=== PATIENT | female | born 1985 | race Caucasian/White ===

== ENCOUNTER 2017-06-13 11:13 | Emergency (ER) | payer OTHER ==
[~2017-06-13] VITALS: Ht 180.3 cm; Wt 81.6 kg
[2017-06-13 11:13] VITALS: BP 161/101
[2017-06-13] MEDS ORDERED: ACET-704 PO (11:57)
[2017-06-13] MEDS ORDERED: CEPH-263 PO (11:57)
[2017-06-13] MEDS ORDERED: NAPR375T3 PO (11:57)
--- NOTE | 2017-06-13 11:58 | PHYS DOC ---
Past History Past Medical History: No Pertinent History Past Surgical History: No Surgical History Alcohol Use: None Drug Use: None Adult General Chief Complaint Chief Complaint: INSECT BITE HPI HPI Patient is a 31-year-old female who presents with complaints of insect bites and increased redness of the right lower thigh and also the right buttock area. Patient was moving out of her house and had to stay in a hotel after spending the night there she noticed the lesions but she comes in because. Redness is spreading. Patient denies any fevers, chills, vomiting, diarrhea. Patient has not complaints Review of Systems Review of Systems Constitutional: Denies fever or chills [] HENT: Denies nasal congestion or sore throat [] Respiratory: Denies cough or shortness of breath [] Cardiovascular: No chest pain GI: Denies abdominal pain, nausea, vomiting, bloody stools or diarrhea [] : Denies dysuria or hematuria [] Musculoskeletal: Denies back pain or joint pain [] Integument: As per the history of present illness Neurologic: Denies headache, focal weakness or sensory changes [] Allergies Allergies Allergies Coded Allergies Type Severity Reaction Last Updated Verified No Known Drug Allergies 07/05/14 No Physical Exam Physical Exam Constitutional: Well developed, well nourished, no acute distress, non-toxic appearance. [] HENT: Normocephalic, atraumatic, Eyes: EOMI, conjunctiva normal, no discharge. [] Neck: Normal range of motion, no tenderness, supple, no stridor. [] Cardiovascular:Heart rate regular rhythm, no murmur equal pulses, normal perfusion Lungs & Thorax: Bilateral breath sounds clear to auscultation, no tachypnea Abdomen: Soft nontender Skin: Lesions consistent with insect-ites in the right inner thigh with surrounding cellulitis. Similar lesions right buttock. No signs of abscess Back: Normal range of motion Extremities: No tenderness,ROM intact, no edema. [] Neurologic: Alert and oriented X 3, normal motor function, normal ambulation in the ED without assistance, no focal deficits noted. [] Psychologic: Affect normal, judgement normal, mood normal. [] EKG EKG [] Radiology/Procedures Radiology/Procedures [] Course & Med Decision Making Course & Med Decision Making Pertinent Labs and Imaging studies reviewed. (See chart for details) [] Dragon Disclaimer Dragon Disclaimer This chart was dictated in whole or in part using Voice Recognition software in a busy, high-work load, and often noisy Emergency Department environment. It may contain unintended and wholly unrecognized errors or omissions. Departure Departure: Impression: Primary Impression: Cellulitis Additional Impression: Insect bite Disposition: 01 HOME, SELF-CARE Condition: STABLE Referrals: HIREN DOUGLASS APRN (PCP) Follow-up in 3-5 days for recheck and reevaluation. If your symptoms worsen or new concerning symptoms develop please return to the ED immediately. Patient Instructions: Cellulitis, Insect Bite Scripts Cephalexin (KEFLEX) 250 Mg Capsule 1 CAP PO TID, #21 CAP Prov: Helen VENTURA MD 06/13/17 Naproxen (NAPROXEN) 375 Mg Tablet 1 TAB PO BID, #15 TAB 5 Refills Prov: Helen VENTURA MD 06/13/17 Acetaminophen With Codeine (TYLENOL WITH CODEINE #3 TABLET) 1 Each Tablet 1 TAB PO Q6HRS, #8 TAB Prov: Helen VENTURA MD 06/13/17 Problem Qualifiers Helen VENTURA MD Jun 13, 2017 11:58
== END 2017-06-13 12:10 | disposition home or self-care (01) ==
LOC: ER 11:13
DX: L03.115 Cellulitis of right lower limb (principal); S70.361A Insect bite (nonvenomous), right thigh, initial encounter; W57.XXXA Bitten or stung by nonvenomous insect and other nonvenomous arthropods, initial encounter; Y93.89 Activity, other specified; Y99.8 Other external cause status; Y92.89 Other specified places as the place of occurrence of the external cause
CPT/HCPCS: 99283

== ENCOUNTER 2018-11-04 06:25 | Emergency (ER) | payer SELFPAY ==
[~2018-11-04] VITALS: Ht 180.3 cm; Wt 95.3 kg
[~2018-11-04 06:25] MED LIST: ACET-704 PO; CEPH-263 PO; NAPR-695 PO
[2018-11-04 06:35] VITALS: BP 143/90
[2018-11-04] MEDS ORDERED: TRAM50TA PO (07:07)
[2018-11-04] MEDS ORDERED: MUPI15CR TP (07:07)
[2018-11-04] MEDS ORDERED: CEPH-264 PO (07:07)
--- NOTE | 2018-11-04 16:25 | ED.ADGEN ---
Past History Past Medical History: Hypertension Past Surgical History: Alcohol Use: None Drug Use: None Adult General Chief Complaint Chief Complaint Right arm pain, swelling and redness HPI HPI Patient is a 32-year-old female who reports possible spider bite to right medial bicep with concern for possible spider bite. Patient reports itching, pain and redness first noted yesterday with gradual expansion of rash around central puncture wound. Reports pain with palpation, itching and clear drainage from the central puncture wound site. No fever chills, abdominal pain, nausea, palpitations, chest pain shortness breath. No other acute symptoms or complaints.] Review of Systems Review of Systems Review symptoms as per history of present illness. All other review symptoms are negative. All other systems were reviewed and found to be within normal limits, except as documented in this note. Allergies Allergies Allergies Coded Allergies Type Severity Reaction Last Updated Verified No Known Drug Allergies 07/05/14 No Physical Exam Physical Exam Constitutional: Well developed, well nourished, no acute distress, non-toxic appearance. [] HENT: Normocephalic, atraumatic, bilateral external ears normal, oropharynx moist, no oral exudates, nose normal. [] Eyes: PERRLA, EOMI, conjunctiva normal, no discharge. [] Neck: Normal range of motion, no tenderness, supple, no stridor. [] Cardiovascular:Heart rate regular rhythm, no murmur [] Lungs & Thorax: Bilateral breath sounds clear to auscultation [] Extremities: 5 x 7 cm patch of erythema with central puncture wound with clear drainage. Mild induration of surrounding site with tenderness. No purulent drainage or obvious cellulitis[] Neurologic: Alert and oriented X 3, normal motor function, normal sensory function, no focal deficits noted. [] Psychologic: Affect normal, judgement normal, mood normal. [] Current Patient Data Vital Signs Vital Signs Date Time Temp Pulse Resp B/P (MAP) Pulse Ox O2 Delivery O2 Flow Rate FiO2 11/04/18 06:35 97.4 20 98 Room Air EKG EKG [] Radiology/Procedures Radiology/Procedures [] Course & Med Decision Making Course & Med Decision Making Pertinent Labs and Imaging studies reviewed. (See chart for details) [Likely spider bite with concern for possible secondary cellulitis. Recommend empiric treatment and close PCP follow-up. Return precautions reviewed.] Final Impression Final Impression [1 spider bite 2. right arm cellulitis ] Mikki Disclaimer Mikki Disclaimer This electronic medical record was generated, in whole or in part, using a voice recognition dictation system. RACHEL MONIQUE DO Nov 04, 2018 16:25
== END 2018-11-04 07:10 | disposition home or self-care (01) ==
LOC: ER 06:25
DX: T63.301A Toxic effect of unspecified spider venom, accidental (unintentional), initial encounter (principal); L03.113 Cellulitis of right upper limb; I10 Essential (primary) hypertension; Y92.89 Other specified places as the place of occurrence of the external cause
CPT/HCPCS: 99283

== ENCOUNTER 2019-11-28 18:51 | Emergency (ER) | payer SELFPAY ==
[~2019-11-28] VITALS: Ht 180.3 cm; Wt 92.8 kg
[~2019-11-28 18:51] MED LIST changes: +CEPH-264 PO; +MUPI15CR TP; +TRAM50TA PO
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
[2019-11-28] MEDS ORDERED: HYDROcodon/IBUPROFEN 7.5/200MG 1 TAB TABLET PO ONE (21:00)
[2019-11-28 21:41] LABS: BARBITURATES NEG (NEG); BENZODIAZEPINES NEG (NEG); CANNABINOIDS NEG (NEG); COCAINE NEG (NEG); METHADONE NEG (NEG); OPIATES NEG (NEG); PHENCYCLIDINE NEG (NEG)
[2019-11-28 21:42] LABS: BILIRUBIN,URINE NEG (NEG); CLARITY,URINE CLEAR; COLOR,URINE AMBER; GLUCOSE,URINE NEG (NEG)
[2019-11-28 21:43] LABS: BACTERIA,URINE 0 /HPF (0-FEW); NITRITE,URINE NEG (NEG); RBC,URINE 0 /HPF (0-2); SQUAMOUS EPITHELIAL CELL,UR OCC /LPF; WBC,URINE 0 /HPF (0-4)
[2019-11-28 21:44] LABS: U PREG PATIENT NEGATIVE (NEG)
[2019-11-28 21:46] LABS: AMPHETAMINE/METHAMPHETAMINE POS (NEG)
[2019-11-30 19:07] LABS: CHLAMYDIA PROBE Negative (Negative)
== END 2019-11-28 22:00 | disposition left against medical advice (07) ==
LOC: ER 18:51 → EEVIPCON 18:51 → ER 22:00
DX: S40.012A Contusion of left shoulder, initial encounter (principal); S40.011A Contusion of right shoulder, initial encounter; S30.23XA Contusion of vagina and vulva, initial encounter; F15.10 Other stimulant abuse, uncomplicated; I10 Essential (primary) hypertension; F17.210 Nicotine dependence, cigarettes, uncomplicated; Y04.0XXA Assault by unarmed brawl or fight, initial encounter; Y93.89 Activity, other specified; Y92.89 Other specified places as the place of occurrence of the external cause; Y99.8 Other external cause status
CPT/HCPCS: 36415; 80307; 81001; 81025; 86592; 86703; 86705; 86709; 86803; 87340; 87491; 87591; 99283; Q0111

== ENCOUNTER 2020-05-17 21:40 | Emergency (ER) | payer SELFPAY ==
[~2020-05-17] VITALS: Ht 180.3 cm; Wt 92.8 kg
[2020-05-17 21:54] VITALS: BP 137/80
[2020-05-17] MEDS ORDERED: CEPHALEXIN 250 MG CAPSULE PO ONE (22:30)
[2020-05-17] MEDS ORDERED: SMZ/TMP 800/160MG TABLET. PO ONE (22:30)
--- NOTE | 2020-05-17 22:36 | PHYS DOC ---
Past History Past Medical History: Hypertension Past Surgical History: Smoking: Cigarettes Alcohol Use: None Drug Use: None General Adult EDM: Chief Complaint: SKIN PROBLEM HPI: HPI: 34-year-old female with past medical history of hypertension (takes no routine medications), presents to the ED with complaints of rash and multiple pruritic lesions over her lower extremities, left elbow and right buttock, that started on . Patient states she felt like she was bit by a spider because she saw one crawling in her bedroom ("brown w/white eyes," 2cms big). Has not checked her mattress. Cannot recall any outdoor exposures (home air conditioned, no camping or hikes, does not around sharma/water), new lotions/perfumes/detergents/foods. No relief with peroxide, Neosporin or aloe vera. No known history of MRSA. LMP was last month. Unknown last tetanus. ROS: Denies associated fever, chills, cough, sore throat, chest pain, dyspnea, hemoptysis, joint swelling or decreased range of motion, vaginal bleeding, abnormal vaginal discharge or odor, dysuria, hematuria, flank pain, abdominal or back pain, decreased urine output, headache, neck stiffness or diaphoresis. Review of Systems: Review of Systems: Constitutional: Denies fever or chills Eyes: Denies change in visual acuity HENT: Denies nasal congestion or sore throat Respiratory: Denies cough or shortness of breath Cardiovascular: Denies chest pain GI: Denies abdominal pain, nausea, vomiting, : Denies dysuria Musculoskeletal: Denies back pain or joint pain Integument: Denies rash Neurologic: Denies headache, focal weakness or sensory changes Lymphatic: Denies swollen glands Psychiatric: Denies depression or anxiety Current Medications: Current Meds: Current Medications Medications (Trade) Dose Ordered Sig/Caden Start Time Stop Time Status Last Admin Dose Admin Cephalexin HCl (Keflex) 500 mg 1X ONCE 05/17/20 22:30 05/17/20 22:31 UNV Trimethoprim/ Sulfamethoxazole (Bactrim Ds) 1 tab 1X ONCE 05/17/20 22:30 05/17/20 22:31 UNV Allergies: Allergies: Allergies Coded Allergies Type Severity Reaction Last Updated Verified No Known Drug Allergies 07/05/14 No Physical Exam: PE: Constitutional: Well developed, well nourished, no acute distress, non-toxic appearance. [] HENT: Normocephalic, atraumatic, bilateral external ears normal, oropharynx moist, no oral exudates, nose normal. [] Eyes: EOMI, conjunctiva normal, no discharge. [] Neck: Normal range of motion, no tenderness, supple, no stridor. [] Cardiovascular:Heart rate regular rhythm, no murmur [] Lungs & Thorax: Bilateral breath sounds clear to auscultation [] Abdomen: Bowel sounds normal, soft, no tenderness, no masses, no pulsatile masses. [] Skin: Warm, dry, left lateral proximal elbow with 8 x 6 cm area of erythema and swelling, no elbow joint tenderness or decreased range of motion, left lateral ankle with 4 x 6 cm area of erythema with 2 punctate wounds (bug bites?)m medial right leg with uniform 4.5 x 6 cm area of erythema with patchy cellulitis surrounding this erythema that is 12 x 8 cm, right upper buttocks with multiple red patchy lesions that appear to be bug bites and local inflammation Back: No tenderness, no CVA tenderness. [] Extremities: No tenderness, no cyanosis, no clubbing, ROM intact, no edema. [] Neurologic: Alert and oriented X 3, normal motor function, normal sensory function, no focal deficits noted. [] Psychologic: Affect normal, judgement normal, mood normal. [] Current Patient Data: Vital Signs: Vital Signs Date Time Temp Pulse Resp B/P (MAP) Pulse Ox O2 Delivery O2 Flow Rate FiO2 05/17/20 21:54 98.5 86 18 137/80 (99) 99 Room Air EKG: EKG: [] Radiology/Procedures: Radiology/Procedures: IMAGING REPORT Signed PATIENT: ORALIA BUCKLEY DACCOUNT: [id number] : 1985 LOCATION: ER AGE: 34 SEX: F EXAM STATUS: REG ER ORD. PHYSICIAN: SABA MURRAY DO REASON: MULTIPLE BUG BITES, REDNESS, SWELLING. PROCEDURE: ANKLE LEFT 3V Left elbow x-rays 3 views HISTORY: Multiple bug bites, redness and swelling. FINDINGS: No abnormal elevation of the fat pads to suggest a joint effusion. No fracture or dislocation. No arthritic change. No periosteal reaction or lytic bone destruction to localize a potential site of infection. There is dorsal proximal forearm soft tissue edema and swelling. IMPRESSION: No acute osseous injury. Soft tissue edema and swelling of the proximal forearm may indicate cellulitis. Left forearm AP lateral x-rays 2 views HISTORY: Multiple bug bites, redness and swelling. FINDINGS: Expansile proximal dorsal forearm soft tissue edema and swelling. No periosteal reaction or lytic bone destruction to suggest osteomyelitis. No fracture or dislocation. IMPRESSION: No acute osseous injury. Focal proximal forearm soft tissue edema and marked swelling likely cellulitis. Left ankle x-rays 3 views HISTORY: Multiple bug bites, redness and swelling. FINDINGS: No fracture or dislocation. No talus osteochondral lesion. Ossicle at the foot is noted. Small spur the plantar calcaneus. Soft tissues demonstrate mild diffuse edema. IMPRESSION: No acute osseous injury. Mild diffuse soft tissue edema at the ankle and lower calf. Right tibia-fibula AP lateral x-rays 2 views HISTORY: bug bites, redness and swelling. FINDINGS: There may be mild diffuse calf soft tissue edema. No periosteal reaction or lytic bone destruction to localize a site of osteomyelitis. No fracture. No dislocation. IMPRESSION: No acute osseous injury. Mild diffuse calf soft tissue edema and swelling. Electronically signed by: Jesus Bruce MD (05/17/2020 11:42 PM) [facility] [place] AND SIGNED BY: JESUS BRUCE MD DATE: 05/17/202341 CC: PCP,CAT; SABA MURRAY DO ~ Impressions: Concern for numerous areas of cellulitis over left ankle, right medial leg, left forearm" of her right buttocks. Will cover for MRSA with Keflex and Bactrim. I advised patient to check her mattress and consider cost accounting clerk services. Strict ED return precautions given for worsening rash, fever or mucous membrane ulcers. Life-threatening processes were considered, low suspicion given patient's history and physical exam (septic joint, sepsis, black or brown recluse bite, toxidrome, compartment syndrome, TEN, EM, meningitis or encephalitis, etc). Encouraged wound care follow-up in 48 hours. PCP referral information to establish oupt care. All of patient's questions were answered and she was stable at time of discharge. I spoken with the patient. I explained the patient's condition, diagnoses and treatment plan based on the information available to me at this time. I have answered the patient and her caregiver's questions and addressed any concerns. The patient and her caregivers have a good understanding of patient's diagnosis, condition and treatment plan as can be expected at this point. Vital signs have been stable. Patient's condition is stable and appropriate for discharge from the emergency department. Patient will pursue further outpatient evaluation with primary care physician or other designated or consulting physician as outlined in the discharge instru ctions. The patient and/or caregivers are agreeable to this plan of care and follow-up instructions have been explained in detail. The patient and/or caregivers have received these instructions in written form and have expressed an understanding of the discharge instructions. The patient and/or caregivers are aware that any significant change of condition or worsening of symptoms should prompt immediate return to this or the closest emergency department or call to 911. Course & Med Decision Making: Course & Med Decision Making Pertinent Labs and Imaging studies reviewed. (See chart for details) [] Dragon Disclaimer: Dragon Disclaimer: This electronic medical record was generated, in whole or in part, using a voice recognition dictation system. Departure Departure: Impression: Primary Impression: Cellulitis Additional Impression: Bug bite Disposition: HOME/RESIDENCE PRIOR TO ADM Condition: STABLE Referrals: [facility] (PCP) CAROL PARRA DO TO ESTABLISH PCP SABA CHAMORRO WOUND CARE FOLLOWUP Patient Instructions: Cellulitis Scripts Hydrocortisone (HYDROCORTISONE) 453.6 Gm Cream..g. 1 LANCE TP PRN TID PRN for ITCHING, #30 GM Prov: SABA MURRAY DO 05/18/20 Cephalexin (KEFLEX) 500 Mg Capsule 2 CAP PO BID for infection for 10 Days, #40 CAP 0 Refills Prov: SABA MURRAY DO 05/18/20 Sulfamethoxazole/Trimethoprim (BACTRIM DS TABLET) 1 Each Tablet 800 TAB PO BID for infection for 10 Days, #20 TAB 0 Refills Prov: SABA MURRAY DO 05/18/20 Justification of Admission: Justification of Admission: Justification of Admission Dx: N/A SABA MURRAY DO May 17, 2020 22:36
--- NOTE | 2020-05-17 23:46 | RAD ---
Left elbow x-rays 3 views HISTORY: Multiple bug bites, redness and swelling. FINDINGS: No abnormal elevation of the fat pads to suggest a joint effusion. No fracture or dislocation. No arthritic change. No periosteal reaction or lytic bone destruction to localize a potential site of infection. There is dorsal proximal forearm soft tissue edema and swelling. IMPRESSION: No acute osseous injury. Soft tissue edema and swelling of the proximal forearm may indicate cellulitis. Left forearm AP lateral x-rays 2 views HISTORY: Multiple bug bites, redness and swelling. FINDINGS: Expansile proximal dorsal forearm soft tissue edema and swelling. No periosteal reaction or lytic bone destruction to suggest osteomyelitis. No fracture or dislocation. IMPRESSION: No acute osseous injury. Focal proximal forearm soft tissue edema and marked swelling likely cellulitis. Left ankle x-rays 3 views HISTORY: Multiple bug bites, redness and swelling. FINDINGS: No fracture or dislocation. No talus osteochondral lesion. Ossicle at the foot is noted. Small spur the plantar calcaneus. Soft tissues demonstrate mild diffuse edema. IMPRESSION: No acute osseous injury. Mild diffuse soft tissue edema at the ankle and lower calf. Right tibia-fibula AP lateral x-rays 2 views HISTORY: bug bites, redness and swelling. FINDINGS: There may be mild diffuse calf soft tissue edema. No periosteal reaction or lytic bone destruction to localize a site of osteomyelitis. No fracture. No dislocation. IMPRESSION: No acute osseous injury. Mild diffuse calf soft tissue edema and swelling. Electronically signed by: Dagoberto Bruce MD (05/17/2020 11:42 PM) [facility]
[2020-05-18] MEDS ORDERED: CEPH-264 PO (00:24)
[2020-05-18] MEDS ORDERED: SULF1TAB24 PO (00:24)
[2020-05-18] MEDS ORDERED: HYDR453.3 TP (00:28)
== END 2020-05-18 00:30 | disposition home or self-care (01) ==
LOC: ER 21:40
DX: S90.562A Insect bite (nonvenomous), left ankle, initial encounter (principal); S80.861A Insect bite (nonvenomous), right lower leg, initial encounter; S50.362A Insect bite (nonvenomous) of left elbow, initial encounter; S30.860A Insect bite (nonvenomous) of lower back and pelvis, initial encounter; L03.115 Cellulitis of right lower limb; I10 Essential (primary) hypertension; F17.210 Nicotine dependence, cigarettes, uncomplicated; W57.XXXA Bitten or stung by nonvenomous insect and other nonvenomous arthropods, initial encounter; Y93.89 Activity, other specified; Y92.89 Other specified places as the place of occurrence of the external cause; Y99.8 Other external cause status
CPT/HCPCS: 73080; 73090; 73590; 73610; 99283; 99284

== ENCOUNTER 2021-07-20 13:25 | Emergency (ER) | payer SELFPAY ==
[~2021-07-20] VITALS: Ht 180.3 cm; Wt 92.8 kg
[~2021-07-20 13:25] MED LIST changes: +HYDR453.3 TP; +SULF1TAB24 PO
[2021-07-20] MEDS ORDERED: IV NORMAL SALINE 1,000ML 1,000 ML IV ONE (14:15)
[2021-07-20] MEDS ORDERED: ONDANSETRON PF 4 MG/2 ML VIAL. IVP ONE (14:45)
[2021-07-20] MEDS ORDERED: MORPHINE SULFATE 4 MG/ML DISP.SYRIN. IV ONE (14:45)
[2021-07-20 15:06] LABS: BASO % 0 % (0-3); EOS % 1 % (0-3); HEMATOCRIT 39.1 % (36.0-47.0); HEMOGLOBIN 13.2 g/dL (12.0-15.5); LYMPH # 0.7 x10^3/uL (1.0-4.8); LYMPH % 10 % (24-48); MEAN CORPUSCULAR HEMOGLOBIN 29 pg (25-35); MEAN CORPUSCULAR HGB CONC 34 g/dL (31-37); MEAN CORPUSCULAR VOLUME 86 fL (79-100); MONO % 14 % (0-9); NEUT # 5.5 x10^3uL (1.8-7.7); NEUT % 76 % (31-73); PLATELET COUNT 251 x10^3/uL (140-400); RED BLOOD COUNT 4.55 x10^6/uL (3.50-5.40); RED CELL DISTRIBUTION WIDTH 14.3 % (11.5-14.5); WHITE BLOOD COUNT 7.3 x10^3/uL (4.0-11.0)
[2021-07-20 15:13] LABS: CALCIUM 8.9 mg/dL (8.5-10.1); CREATININE 0.5 mg/dL (0.6-1.0); GFR 138.8
[2021-07-20] MEDS ORDERED: LIDOCAINE 2% JELLY 6ML IN APPLICATOR. MM ONE ×2 (15:15→17:30)
[2021-07-20 15:19] LABS: ALBUMIN 3.4 g/dL (3.4-5.0); ALBUMIN/GLOBULIN RATIO 0.8 (1.0-1.7); TOTAL BILIRUBIN 0.4 mg/dL (0.2-1.0); TOTAL PROTEIN 7.5 g/dL (6.4-8.2)
--- NOTE | 2021-07-20 15:54 | PHYS DOC ---
Past History Past Medical History: Hypertension Past Surgical History: Smoking: Cigarettes Alcohol Use: None Drug Use: None General Adult EDM: Chief Complaint: NAUSEA/VOMITING/DIARRHEA HPI: HPI: Patient is a 35 year old female who presents with 2-day history of pelvic pain, nausea, constipation, and rectal pain. Patient rates her pain 10/10 nonradiating. Due to her constipation, she states that she strains and attempted to pass bowel movements and has noted small amount of blood on toilet tissue. She reports associated symptoms of subjective fever, chills, night sweats, dysuria, anorexia, altered taste sensation, and fatigue. Patient has attempted hot showers and baths with Epsom salts without any symptom relief. Her last known menstrual period was sometime last month, she does not remember the day, but denies . Patient denies emesis, diarrhea, hematuria and gross blood in stools. Patient has no other complaints at this time. Review of Systems: Review of Systems: Constitutional: See HPI Respiratory: Denies cough or shortness of breath Cardiovascular: Denies chest pain or edema GI: See HPI : See HPI Musculoskeletal: Denies back pain or joint pain Integument: Denies rash or other skin lesions Neurologic: Denies headache, focal weakness or sensory changes Current Medications: Current Meds: Current Medications Medications (Trade) Dose Ordered Sig/[facility] Start Time Stop Time Status Last Admin Dose Admin Lidocaine HCl (Glydo (Lidocaine) Jelly) 1 mariola 1X ONCE 07/20/21 15:15 07/20/21 15:16 DC Morphine Sulfate (Morphine 4mg Syringe) 6 mg 1X ONCE 07/20/21 14:45 07/20/21 14:46 DC 07/20/21 14:33 6 MG Ondansetron HCl (Zofran) 4 mg 1X ONCE 07/20/21 14:45 07/20/21 14:46 DC 07/20/21 14:33 4 MG Sodium Chloride 1,000 ml @ 1,000 mls/hr 1X ONCE 07/20/21 14:15 07/20/21 15:14 DC 07/20/21 14:33 1,000 MLS/HR Allergies: Allergies: Allergies Coded Allergies Type Severity Reaction Last Updated Verified No Known Drug Allergies 07/05/14 No Physical Exam: PE: Constitutional: Patient is tearful and curled on her side in bed. Otherwise well developed, well nourished, non-toxic appearance. Cardiovascular: Heart rate regular rhythm, no murmur. Lungs & Thorax: Bilateral breath sounds clear to auscultation. Abdomen: Bowel sounds normal, soft, isolated suprapubic tenderness, no rebound, no guarding, no masses, no pulsatile masses. Rectal: Large (1.2 cm) external hemorrhoid noted at 12:00. No fissures or gross blood noted. No other lesions appreciated. Skin: Warm, dry, no erythema, no rash. Back: No step-offs, no tenderness, no CVA tenderness. Extremities: No tenderness, no cyanosis, no clubbing, ROM intact, no edema. Neurologic: Alert and oriented x3, normal motor function, normal sensory function, no focal deficits noted. Current Patient Data: Labs: Laboratory Tests Test 07/20/21 14:35 White Blood Count 7.3 x10^3/uL (4.0-11.0) Red Blood Count 4.55 x10^6/uL (3.50-5.40) Hemoglobin 13.2 g/dL (12.0-15.5) Hematocrit 39.1 % (36.0-47.0) Mean Corpuscular Volume 86 fL (79-100) Mean Corpuscular Hemoglobin 29 pg (25-35) Mean Corpuscular Hemoglobin Concent 34 g/dL (31-37) Red Cell Distribution Width 14.3 % (11.5-14.5) Platelet Count 251 x10^3/uL (140-400) Neutrophils (%) (Auto) 76 % (31-73) H Lymphocytes (%) (Auto) 10 % (24-48) L Monocytes (%) (Auto) 14 % (0-9) H Eosinophils (%) (Auto) 1 % (0-3) Basophils (%) (Auto) 0 % (0-3) Neutrophils # (Auto) 5.5 x10^3uL (1.8-7.7) Lymphocytes # (Auto) 0.7 x10^3/uL (1.0-4.8) L Monocytes # (Auto) 1.0 x10^3/uL (0.0-1.1) Eosinophils # (Auto) 0.0 x10^3/uL (0.0-0.7) Basophils # (Auto) 0.0 x10^3/uL (0.0-0.2) Sodium Level 138 mmol/L (136-145) Potassium Level 3.0 mmol/L (3.5-5.1) L Chloride Level 102 mmol/L (98-107) Carbon Dioxide Level 28 mmol/L (21-32) Anion Gap 8 (6-14) Blood Urea Nitrogen 5 mg/dL (7-20) L Creatinine 0.5 mg/dL (0.6-1.0) L Estimated GFR (Cockcroft-Gault) 138.8 BUN/Creatinine Ratio 10 (6-20) Glucose Level 97 mg/dL (70-99) Calcium Level 8.9 mg/dL (8.5-10.1) Total Bilirubin 0.4 mg/dL (0.2-1.0) Aspartate Amino Transferase (AST) 18 U/L (15-37) Alanine Aminotransferase (ALT) 23 U/L (14-59) Alkaline Phosphatase 56 U/L (46-116) Total Protein 7.5 g/dL (6.4-8.2) Albumin 3.4 g/dL (3.4-5.0) Albumin/Globulin Ratio 0.8 (1.0-1.7) L Vital Signs: Vital Signs Date Time Temp Pulse Resp B/P (MAP) Pulse Ox O2 Delivery O2 Flow Rate FiO2 07/20/21 14:33 20 97 07/20/21 13:52 99.6 92 137/80 (99) Room Air Heart Score: C/O Chest Pain: No Course & Med Decision Making: Course & Med Decision Making Pertinent Labs and Imaging studies reviewed. (See chart for details) Patient presentation concerning for hemorrhoid as well as UTI. Blood and urine collected for analysis. Patient was provided with topical lidocaine for hemorrhoid pain relief. Patient also appeared dehydrated with poor skin turgor, so a liter of normal saline bolus administered. Morphine and Zofran were provided for pain and nausea. On reevaluation, patient is much more comfortable and is able to ambulate without pain. Urine shows evidence of UTI, which will be treated with Keflex. Patient states she is unable to go to the pharmacy until tomorrow, when she gets paid. First dose of MiraLAX and Keflex will be administered here in the emergency depar tment. Mikki Disclaimer: Mikki Disclaimer: This electronic medical record was generated, in whole or in part, using a voice recognition dictation system. Departure Departure: Impression: Primary Impression: UTI (urinary tract infection) Qualified Codes: N39.0 - Urinary tract infection, site not specified; R31.9 - Hematuria, unspecified Additional Impressions: External hemorrhoid Nausea without vomiting Disposition: HOME / SELF CARE / HOMELESS Condition: STABLE Referrals: PCP,UNKNOWN (PCP) Patient Instructions: Hemorrhoids, [id number], Nausea and Vomiting, [id number], Urinary Tract Infection, [id number] Additional Instructions: As previously discussed, your discharge instructions will include treatment for UTI as well as external hemorrhoids, and constipation: You may use an over the counter stool softener, such as docusate (which comes in capsule). This will soften the stool so that you will not have to strain to pass bowel movement. If the stool softener alone does not allow you to pass a bowel movement, you may also use a petroleum suppository to make the bowel movement easier to pass. AVOID EXCESSIVE STRAINING TO PASS STOOL. Excessive straining can worsen your current hemorrhoid. You may also purchase witch morgan pads to offer both topical relief and prevent infection of external hemorrhoid. Additionally, you may continue to take baths with Epsom salts. These baths may be warm, or alternate between warm and cool water. You are provided with a prescription for an antibiotic, Keflex. The urine sample you provided will be cultured to determine antibiotic susceptibility. Please be sure to take the full course of the antibiotic unless called and instructed otherwise by [place] emergency department. Please return to the emergency department if you have new or worsening symptoms. Scripts Cephalexin (KEFLEX) 500 Mg Capsule 1 CAP PO BID for uti for 7 Days, #14 CAP Prov: PAULO SEVERINO 07/20/21 Witch Morgan (Medi-Pads) 1 Each Med..pad 1 EACH TP PRN PRN for RECTAL PAIN, #20 PAD Prov: PAULO SEVERINO 07/20/21 Bisacodyl (BISACODYL) 5 Mg Tablet.dr 5 MG PO PRN DAILY PRN for CONSTIPATION, #10 TAB 0 Refills Prov: PAULO SEVERINO 07/20/21 PAULO SEVERINO Jul 20, 2021 15:54
[2021-07-20 16:45] LABS: BILIRUBIN,URINE NEG (NEG); CLARITY,URINE CLOUDY; COLOR,URINE YELLOW; GLUCOSE,URINE NEG (NEG); NITRITE,URINE POS (NEG); WBC,URINE >40 /HPF (0-4)
[2021-07-20 16:46] LABS: BACTERIA,URINE MOD /HPF (0-FEW); SQUAMOUS EPITHELIAL CELL,UR FEW /LPF
[2021-07-20] MEDS ORDERED: WITC1MED TP (17:13)
[2021-07-20] MEDS ORDERED: CEPH500C PO (17:13)
[2021-07-20] MEDS ORDERED: BISA5TAB4 PO (17:13)
[2021-07-20 17:30] VITALS: BP 140/89
[2021-07-20] MEDS ORDERED: CEPHALEXIN 250 MG CAPSULE PO ONE (17:30)
[2021-07-20] MEDS ORDERED: DOCUSATE SODIUM 100 MG CAPSULE PO ONE (17:30)
[2021-07-27] MEDS ORDERED: DOXY100T PO (12:11)
== END 2021-07-20 17:33 | disposition home or self-care (01) ==
LOC: ER 13:25
DX: K64.4 Residual hemorrhoidal skin tags (principal); N39.0 Urinary tract infection, site not specified; R11.0 Nausea; F17.210 Nicotine dependence, cigarettes, uncomplicated; I10 Essential (primary) hypertension
CPT/HCPCS: 36415; 80053; 81001; 85025; 87086; 96361; 96374; 96375; 99284; J2270; J2405; J7030; 87077; 87186

== ENCOUNTER 2021-07-25 12:03 | Inpatient (IN) | payer SELFPAY ==
[~2021-07-25] VITALS: Ht 180.3 cm; Wt 92.8 kg
[~2021-07-25 12:03] MED LIST changes: +BISA5TAB4 PO; +CEPH500C PO; +WITC1MED TP
[2021-07-25 12:30] VITALS: BP 119/86
[2021-07-25] MEDS ORDERED: ONDANSETRON ODT 4 MG TAB.RAPDIS PO PRN (12:45)
[2021-07-25 13:10] LABS: BASO % 1 % (0-3); EOS # 0.1 x10^3/uL (0.0-0.7); EOS % 2 % (0-3); HEMOGLOBIN 12.3 g/dL (12.0-15.5); LYMPH # 1.6 x10^3/uL (1.0-4.8); LYMPH % 25 % (24-48); MEAN CORPUSCULAR HEMOGLOBIN 28 pg (25-35); MEAN CORPUSCULAR HGB CONC 33 g/dL (31-37); MEAN CORPUSCULAR VOLUME 85 fL (79-100); MONO # 0.8 x10^3/uL (0.0-1.1); MONO % 13 % (0-9); NEUT # 3.8 x10^3uL (1.8-7.7); NEUT % 60 % (31-73); PLATELET COUNT 338 x10^3/uL (140-400); RED BLOOD COUNT 4.36 x10^6/uL (3.50-5.40); WHITE BLOOD COUNT 6.3 x10^3/uL (4.0-11.0)
[2021-07-25 13:18] LABS: ALBUMIN 3.1 g/dL (3.4-5.0); ALBUMIN/GLOBULIN RATIO 0.8 (1.0-1.7); CALCIUM 8.2 mg/dL (8.5-10.1); CREATININE 0.7 mg/dL (0.6-1.0); GFR 94.2; POTASSIUM 3.4 mmol/L (3.5-5.1); TOTAL BILIRUBIN 0.3 mg/dL (0.2-1.0)
[2021-07-25] MEDS: POTASSIUM CHLORIDE 30 MEQ in IV 1/2 NORMAL SALINE 1,000 ML IV SCH (15:14)
[2021-07-25 15:20] VITALS: BP 117/79
[2021-07-25] MEDS: IPRATRPIUM/ALBUTEROL 0.5/2.5MG 3 ML NEBU. NEB SCH ×2 (15:22→19:42)
--- NOTE | 2021-07-25 15:23 | NUR ---
Pt is currently PUI. Breath sounds Clear Spo2 97% on RA RR 16 bpm Hr 80 bpm No Respiratory history No home Respiratory meds Pt denies cough or SOA Pt. doesn't feel like she needs breathing txs. at this time. Request Pt. treatment order be changed to Prn or DC'd Thank you, Respiratory therapy.
--- NOTE | 2021-07-25 17:12 | RAD ---
Exam: Chest 2 views INDICATION: Wheezing TECHNIQUE: Frontal and lateral views the chest Comparisons: 07/05/2014 FINDINGS: The cardiomediastinal silhouette and pulmonary vessels are within normal limits. The lung and pleural spaces are clear. IMPRESSION: No acute cardiopulmonary process. Electronically signed by: Pauline Ramirez MD (07/25/2021 5:09 PM) MATTHEW
--- NOTE | 2021-07-25 17:43 | RAD ---
Exam: CT of abdomen and pelvis without contrast INDICATION: Abdominal pain nausea vomiting for weeks TECHNIQUE: Sequential axial images through the abdomen and pelvis obtained without IV contrast. Sagit anjel and coronal reformatted images were reconstructed from the axial data and reviewed. Exposure: One or more of the following in the visualized dose reduction techniques were utilized for this examination: 1. Automated exposure control 2. Adjustment of the MA and/or KV according to patient size 3. Use of iterative of reconstructive technique Comparisons: None FINDINGS: Heart size is normal. No pericardial effusion. Visualized lung bases are clear. No pleural effusion. Evaluation of solid organs is limited secondary to noncontrast technique. Liver, pancreas and adrenals are unremarkable. Gallbladder is contracted. Spleen is not enlarged. There is a hyperdense rounded lesion within the central spleen measuring appr oximately 3.6 cm. Right kidney is absent. No perinephric inflammation or hydronephrosis. No renal or ureteral calculi a re identified. Bladder is partially distended and appears thin-walled. Uterus is not enlarged. No abnormal adnexal m ass. Large and small bowel are unremarkable. Appendix is normal. No free intra-abdominal air or fluid. No obstruction. Abdominal aorta has a normal course and caliber. No enlarged intra-abdominal lymph nodes are identified. No suspicious osseous lesions or acute fractures. IMPRESSION: There is a rounded hyperdense lesion within the central spleen measuring 3.6 cm. This is incompletely characterized on noncontrast study. Differential considerations include splenic artery aneurysm or h ematoma. Further characterization with a contrast-enhanced CT or targeted ultrasound may be helpful. Electronically signed by: Pauline Ramirez MD (07/25/2021 5:41 PM) [facility]
[2021-07-25 19:00] VITALS: BP 150/77
--- NOTE | 2021-07-25 19:00 | NUR ---
The patient, ORALIA BUCKLEY, 35 y/o, F admitted by DORA PIMENTEL MD, was given written information regarding hospital policies, unit procedures and contact persons.
[2021-07-25] MEDS ORDERED: ZOLPIDEM 5 MG TABLET. PO PRN (21:30)
[2021-07-25] MEDS ORDERED: BISACODYL TAB 5 MG TABLET.DR. PO PRN (21:30)
[2021-07-25] MEDS: traMADol 50 MG TABLET PO PRN (21:58)
[2021-07-25 22:26] VITALS: BP 147/81
[2021-07-26] MEDS ORDERED: ACETAMINOPHEN/CODEINE 300/30MG TABLET PO PRN
[2021-07-26] MEDS: POTASSIUM CHLORIDE 30 MEQ in IV 1/2 NORMAL SALINE 1,000 ML IV SCH ×2 (04:40→21:18)
[2021-07-26] MEDS: IPRATRPIUM/ALBUTEROL 0.5/2.5MG 3 ML NEBU. NEB SCH ×4 (04:58→20:10)
--- NOTE | 2021-07-26 04:58 | NUR ---
pt said to let her sleep at 5am.
--- NOTE | 2021-07-26 05:15 | NUR ---
Pt concerned about hemorrhoids. She uses witch morgan pads at home for them. She states she has "blood and clear discharge coming from her rectum, more than before and would like the physician to look at it while she is here." Pt ambulates independently to toilet and has improved pain levels since taking Tramadol. Will continue to monitor.
[2021-07-26 06:25] VITALS: BP 139/80
[2021-07-26] MEDS: traMADol 50 MG TABLET PO PRN ×2 (06:25→21:18)
[2021-07-26 07:21] LABS: INFLUENZA A PATIENT NEGATIVE (NEGATIVE); INFLUENZA B PATIENT NEGATIVE (NEGATIVE)
[2021-07-26] MEDS ORDERED: MUPIROCIN CALCIUM TP SCH (09:00)
[2021-07-26] MEDS ORDERED: NAPROXEN 375 MG TABLET PO PRN (09:00)
[2021-07-26] MEDS: HYDROCORTISONE 1% TOPICAL CREAM 30GM TUBE. TP SCH ×2 (09:07→21:00)
[2021-07-26 11:00] VITALS: BP 123/84
[2021-07-26] MEDS ORDERED: AZITHROMYCIN 250 MG TABLET. PO ONE (12:00)
[2021-07-26 14:21] VITALS: BP 125/77
[2021-07-26 19:23] VITALS: BP 137/79
--- NOTE | 2021-07-26 20:13 | NUR ---
pt does not want +8 pm tx, but says will take the 5am one.
[2021-07-26] MEDS: LACTOBACILLUS RHAMNOSUS GG 1 CAPSULE. PO SCH (21:18)
[2021-07-26] MEDS: methylPREDNISolone SOD SUCC PF 40 MG/ML VIAL. IV SCH (21:18)
[2021-07-26 23:22] VITALS: BP 136/81
--- NOTE | 2021-07-26 23:24 | PN ---
SUBJECTIVE: A 35-year-old female came in with acute exacerbation of asthma, difficulty breathing with shortness of breath and the like. She was also complaining of abdominal pain with nausea and vomiting. The patient is doing a little bit better and did run a temperature up to 100.5. The patient is still wheezing throughout. OBJECTIVE: VITAL SIGNS: Otherwise, blood pressure 150/77, respiratory rate 18, pulse 90. Presently afebrile, but did have an elevated temperature of 100.5. GENERAL: The patient is otherwise alert and oriented. LUNGS: Show both inspiratory and expiratory wheezes, a little bit looser than they have been. CARDIOVASCULAR: Regular sinus rhythm, S1, S2, without murmur, rub, thrill, or extra heart sound. ABDOMEN: Soft, nontender. EXTREMITIES: No clubbing, cyanosis or edema. NEUROLOGIC: Intact. IMPRESSION: Acute exacerbation of asthma, acute respiratory distress, abdominal pain with nausea and vomiting, moderate protein malnutrition, COVID negative. PLAN: The patient will be monitored carefully, placed on steroids as well as aggressive pulmonary toilet, and make further evaluation on her as indicated per those results. MOSES DR: Rajinder TID: [id number]
--- NOTE | 2021-07-27 05:20 | NUR ---
[employer] found vape on pt stomach while pt sleeping. This nurse spoke with pt about vape policy. Pt agreed to keep vape, labelled with pt sticker, in med room. Pt denied any other prohibited items in her belongings and verbalized understanding of policies. Will continue to monitor.
[2021-07-27 05:21] VITALS: BP 113/70
[2021-07-27] MEDS: IPRATRPIUM/ALBUTEROL 0.5/2.5MG 3 ML NEBU. NEB SCH ×2 (05:50→11:21)
[2021-07-27] MEDS: methylPREDNISolone SOD SUCC PF 40 MG/ML VIAL. IV SCH (08:03)
[2021-07-27] MEDS: LACTOBACILLUS RHAMNOSUS GG 1 CAPSULE. PO SCH (08:03)
[2021-07-27] MEDS: POTASSIUM CHLORIDE 30 MEQ in IV 1/2 NORMAL SALINE 1,000 ML IV SCH (08:32)
[2021-07-27] MEDS: HYDROCORTISONE 1% TOPICAL CREAM 30GM TUBE. TP SCH (08:38)
[2021-07-27] MEDS ORDERED: AZITHROMYCIN 250 MG TABLET. PO SCH (09:00)
[2021-07-27] MEDS ORDERED: CLOBETASOL EMOLLIENT 0.05% TOPICAL CREAM 15GM TUBE. TP SCH (09:00)
[2021-07-27 10:34] VITALS: BP 123/82
[2021-07-27] MEDS ORDERED: DOXY100T PO (12:11)
--- NOTE | 2021-07-27 13:35 | NUR ---
PATIENT IS DISCHARGED HOME, DISCHARGE INSTRUCTION GIVEN TO THE PATIENT, PATIENT VERBALIZED UNDERSTANDING. PATIENT LEFT UNIT VIA AMBULATION ACCOMP BY SELF.
== END 2021-07-27 13:35 | disposition home or self-care (01) | DRG 202 ==
LOC: 1 SOUTH 12:03
PROVIDERS: ADMIT Family Medicine; ATTEND Family Medicine
DX: J45.901 Unspecified asthma with (acute) exacerbation (principal); E44.0 Moderate protein-calorie malnutrition; Z20.822 Contact with and (suspected) exposure to COVID-19; Z68.28 Body mass index [BMI] 28.0-28.9, adult
CPT/HCPCS: 36415; 71046; 74176; 80053; 85025; 86301; 87426; 87804; 94640; J0696; J2920; J3480; J7030; U0003

== ENCOUNTER 2022-02-04 20:46 | Emergency (ER) | payer SELFPAY ==
[~2022-02-04] VITALS: Ht 180.3 cm; Wt 84.2 kg
[~2022-02-04 20:46] MED LIST changes: +DOXY100T PO
[2022-02-04] MEDS ORDERED: SODIUM PHOSPHATES 19/7GM 133 ML ENEMA. PR ONE (21:15)
[2022-02-04] MEDS ORDERED: BISACODYL 10 MG SUPP.RECT PR ONE ×2 (21:15)
[2022-02-04 21:29] LABS: CLARITY,URINE CLEAR; COLOR,URINE YELLOW; GLUCOSE,URINE NEG (NEG); NITRITE,URINE NEG (NEG)
[2022-02-04 21:30] LABS: BACTERIA,URINE FEW /HPF (0-FEW); RBC,URINE 0 /HPF (0-2); SQUAMOUS EPITHELIAL CELL,UR MOD /LPF
--- NOTE | 2022-02-04 21:59 | PHYS DOC ---
Past History Past Medical History: Hypertension (CELESTE FERNANDEZ APRN) Past Surgical History: (CELESTE FERNANDEZ APRN) Smoking: Cigarettes Alcohol Use: None Drug Use: None (CELESTE FERNANDEZ APRN) General Adult EDM: Chief Complaint: MULTIPLE COMPLAINTS HPI: HPI: Patient is a 36 year old female who presents with left sided facial swelling. Denies dental pain or trauma. Patient reporting trouble swallowing and sore throat. Patient is maintaining own secretions. No trisgmus. Reports taking ibuporfen this morning with no relief. Patient has been unable to eat or drink and feels "dizzy". No n/v/d. No shortness of breathe or chest pain. Denies health history. (CELESTE FERNANDEZ APRN) Review of Systems: Review of Systems: Constitutional: Denies fever or chills Eyes: Denies change in visual acuity HENT: Denies nasal congestion or sore throat Respiratory: Denies cough or shortness of breath Cardiovascular: Denies chest pain or edema GI: Denies abdominal pain, nausea, vomiting, bloody stools or diarrhea : Denies dysuria Musculoskeletal: Denies back pain or joint pain Integument: Denies rash Neurologic: Denies headache, focal weakness or sensory changes Endocrine: Denies polyuria or polydipsia Lymphatic: Denies swollen glands Psychiatric: Denies depression or anxiety (CELESTE FERNANDEZ APRN) Current Medications: Current Meds: Current Medications Medications (Trade) Dose Ordered Sig/[facility] Start Time Stop Time Status Last Admin Dose Admin Acetaminophen/ Hydrocodone Bitart (Lortab 5/325) 1 tab 1X ONCE 02/04/22 22:00 02/04/22 22:01 UNV Bisacodyl (Dulcolax Supp) 10 mg 1X ONCE 02/04/22 21:15 02/04/22 21:15 DC Iohexol (Omnipaque 300 Mg/ml) 75 ml 1X ONCE 02/04/22 22:00 02/04/22 22:01 UNV Sodium Biphosphate/ Sodium Phosphate (Fleet Adult) 133 ml 1X ONCE 02/04/22 21:15 02/04/22 21:15 DC (CELESTE FERNANDEZ APRN) Allergies: Allergies: Allergies Coded Allergies Type Severity Reaction Last Updated Verified No Known Drug Allergies 07/05/14 No (CELESTE FERNANDEZ APRN) Physical Exam: PE: Constitutional: Well developed, well nourished, no acute distress, non-toxic appearance. [] HENT: Normocephalic, atraumatic, bilateral external ears normal, oropharynx moist, no oral exudates, nose normal. [] Eyes: PERRLA, EOMI, conjunctiva normal, no discharge. [] Neck: Normal range of motion, left sided cervical tenderness, no stridor Cardiovascular:Heart rate regular rhythm, no murmur [] Lungs & Thorax: Bilateral breath sounds clear to auscultation, no wheezing Abdomen: Bowel sounds normal, soft, no tenderness, no masses, no pulsatile masses. [] Skin: Warm, dry, no erythema, no rash. [] Back: No tenderness, no CVA tenderness. [] Extremities: No tenderness, no cyanosis, no clubbing, ROM intact, no edema. [] Neurologic: Alert and oriented X 3, normal motor function, normal sensory function, no focal deficits noted. [] Psychologic: Affect normal, judgement normal, mood normal. [] (CELESTE FERNANDEZ APRN) Current Patient Data: Labs: Laboratory Tests Test 02/04/22 20:23 02/04/22 20:50 POC Urine HCG, Qualitative hcg negative (Negative) Urine Collection Type Unknown Urine Color Yellow Urine Clarity Clear Urine pH 6.0 Urine Specific [place] >=1.030 Urine Protein 100 mg/dl (NEG-TRACE) Urine Glucose (UA) Neg mg/dL (NEG) Urine Ketones (Stick) Trace mg/dL (NEG) Urine Blood Neg (NEG) Urine Nitrite Neg (NEG) Urine Bilirubin Small (NEG) Urine Urobilinogen Dipstick 4.0 mg/dL (0.2 mg/dL) Urine Leukocyte Esterase Neg (NEG) Urine RBC 0 /HPF (0-2) Urine WBC 1-4 /HPF (0-4) Urine Squamous Epithelial Cells Mod /LPF Urine Bacteria Few /HPF (0-FEW) Urine Mucus Mod /LPF Vital Signs: Vital Signs Date Time Temp Pulse Resp B/P (MAP) Pulse Ox O2 Delivery O2 Flow Rate FiO2 02/04/22 20:50 98.6 91 18 132/84 (100) 95 Room Air (CELESTE FERNANDEZ APRN) EKG: EKG: [] (CELESTE FERNANDEZ APRN) Radiology/Procedures: Radiology/Procedures: [] (CELESTE FERNANDEZ APRN) Radiology/Procedures: [place] [address] IMAGING REPORT Signed PATIENT: ORALIA BUCKLEY DACCOUNT: [id number] : 1985 LOCATION: ER AGE: 36 SEX: F EXAM STATUS: REG ER ORD. PHYSICIAN: CELESTE FERNANDEZ APRN REASON: OMNI 300, 75ML IV. Swelling left neck PROCEDURE: CT SOFT TISSUE NECK W/CONTRAST CT neck with contrast History: Left neck swelling Axial helical images of the neck were obtained after the administration of 75 cc IV Omnipaque 300 contrast. Axial coronal and sagittal reconstruction was performed for a CT soft tissues neck with contrast. Findings: The fat soft tissue planes of the neck are preserved. The tonsils are swollen left worse than right. There is multiple mildly enlarged lymph nodes in the neck left worse than right. There is no prevertebral soft tissue swelling. The thyroid appears normal. Mild reversal of the normal cervical lordosis is seen. Impression: 1. Mild reversal of the normal cervical lordosis could be positional or could be secondary to muscle spasm. 2. Tonsillitis left worse than right no focal abscess. 3. Reactive lymphadenopathy left worse than right. End of impression PQRS Compliance Statement: One or more of the following individualized dose reduction techniques were utilized for this examination: 1. Automated exposure control 2. Adjustment of the mA and/or kV according to patient size 3. Use of iterative reconstruction technique Electronically signed by: Aiyana Wheeler III, MD (02/04/2022 11:31 PM) [facility] DICTATED AND SIGNED BY: AIYANA WHEELER III, MD DATE: 02/04/222326 CC: SEMAJ BOOTH MD; DORA PIMENTEL MD; CELESTE FERNANDEZ APRN ~ (SEMAJ BOOTH MD) Heart Score: C/O Chest Pain: No Risk Factors: Risk Factors: DM, Current or recent (<one month) smoker, HTN, HLP, family history of CAD, obesity. Risk Scores: Score 0 - 3: 2.5% MACE over next 6 weeks - Discharge Home Score 4 - 6: 20.3% MACE over next 6 weeks - Admit for Clinical Observation Score 7 - 10: 72.7% MACE over next 6 weeks - Early Invasive Strategies (CELESTE FERNANDEZ APRN) C/O Chest Pain: No (SEMAJ BOOTH MD) Course & Med Decision Making: Course & Med Decision Making Pertinent Labs and Imaging studies reviewed. (See chart for details) []36 year old female presents with left sided neck swelling and throat pain. Workup in er consists of CBC,CMP, CT soft tissue neck. Patient reports trouble swallowing due to pain. Handling secretions. Able to open mouth. Pain treated while in the ER. Transfer of patient care given to @ 5903 (CELESTE FERNANDEZ APRN) Course & Med Decision Making Accepted patient care shift change pending labs and imaging. (SEMAJ BOOTH MD) Dragon Disclaimer: Dragon Disclaimer: This electronic medical record was generated, in whole or in part, using a voice recognition dictation system. (CELESTE FERNANDEZ APRN) Departure Departure: Impression: Primary Impression: Tonsillitis Disposition: HOME / SELF CARE / HOMELESS Condition: STABLE Referrals: DORA PIMENTEL MD (PCP) Patient Instructions: Tonsillitis Scripts Amoxicillin (AMOXICILLIN) 500 Mg Capsule 1 CAP PO TID for antibiotic for 10 Days, #30 CAP Prov: SEMAJ BOOTH MD 02/05/22 CELESTE FERNANDEZ APRN Feb 04, 2022 21:59 SEMAJ BOOTH MD Feb 04, 2022 22:29
[2022-02-04] MEDS ORDERED: HYDROcodone/APAP 5/325MG 1 TAB TABLET PO ONE (22:00)
[2022-02-04] MEDS ORDERED: IV NORMAL SALINE 1,000ML 1,000 ML IV ONE (22:00)
[2022-02-04] MEDS ORDERED: MORPHINE SULFATE 4 MG/ML DISP.SYRIN. IV ONE (22:00)
[2022-02-04] MEDS ORDERED: IOHEXOL 300 MG/ML 75 ML VIAL. IV ONE (22:00)
[2022-02-04 22:38] LABS: BASO % 0 % (0-3); EOS # 0.1 x10^3/uL (0.0-0.7); EOS % 1 % (0-3); HEMATOCRIT 37.8 % (36.0-47.0); HEMOGLOBIN 12.8 g/dL (12.0-15.5); LYMPH # 1.1 x10^3/uL (1.0-4.8); LYMPH % 11 % (24-48); MEAN CORPUSCULAR HEMOGLOBIN 29 pg (25-35); MEAN CORPUSCULAR HGB CONC 34 g/dL (31-37); MEAN CORPUSCULAR VOLUME 85 fL (79-100); MONO # 1.1 x10^3/uL (0.0-1.1); MONO % 11 % (0-9); NEUT # 7.8 x10^3uL (1.8-7.7); NEUT % 78 % (31-73); PLATELET COUNT 226 x10^3/uL (140-400); RED BLOOD COUNT 4.45 x10^6/uL (3.50-5.40); RED CELL DISTRIBUTION WIDTH 14.5 % (11.5-14.5); WHITE BLOOD COUNT 10.1 x10^3/uL (4.0-11.0)
[2022-02-04 22:41] LABS: CALCIUM 8.5 mg/dL (8.5-10.1); CREATININE 0.7 mg/dL (0.6-1.0); GFR 93.6; POTASSIUM 3.4 mmol/L (3.5-5.1)
[2022-02-04 22:46] LABS: ALBUMIN 3.3 g/dL (3.4-5.0); ALBUMIN/GLOBULIN RATIO 0.9 (1.0-1.7); TOTAL BILIRUBIN 0.6 mg/dL (0.2-1.0); TOTAL PROTEIN 6.8 g/dL (6.4-8.2)
[2022-02-04] MEDS ORDERED: DEXAMETHASONE SOD PHOS 10 MG/ML VIAL. PO ONE (23:15)
--- NOTE | 2022-02-04 23:34 | RAD ---
CT neck with contrast History: Left neck swelling Axial helical images of the neck were obtained after the administration of 75 cc IV Omnipaque 300 con trast. Axial coronal and sagittal reconstruction was performed for a CT soft tissues neck with contra st. Findings: The fat soft tissue planes of the neck are preserved. The tonsils are swollen left worse than right. There is multiple mildly enlarged lymph nodes in the neck left worse than right. There is no preverte bral soft tissue swelling. The thyroid appears normal. Mild reversal of the normal cervical lordosis is seen. Impression: 1. Mild reversal of the normal cervical lordosis could be positional or could be secondary to muscle spasm. 2. Tonsillitis left worse than right no focal abscess. 3. Reactive lymphadenopathy left worse than right. End of impression PQRS Compliance Statement: One or more of the following individualized dose reduction techniques were utilized for this examinat ion: 1. Automated exposure control 2. Adjustment of the mA and/or kV according to patient size 3. Use of iterative reconstruction technique Electronically signed by: Awais Leonard III, MD (02/04/2022 11:31 PM) [facility]
[2022-02-05] MEDS ORDERED: AMOXICILLIN 250 MG CAPSULE PO ONE
[2022-02-05] MEDS ORDERED: AMOX500C PO (00:08)
[2022-02-05 00:49] VITALS: BP 116/86
== END 2022-02-05 00:56 | disposition home or self-care (01) ==
LOC: ER 20:46
DX: J03.90 Acute tonsillitis, unspecified (principal); I10 Essential (primary) hypertension; F17.210 Nicotine dependence, cigarettes, uncomplicated
CPT/HCPCS: 36415; 70491; 80053; 81001; 81025; 85025; 87070; 87147; 87880; 96361; 96374; 99285; J1100; J2270; J7030; Q9967